=== PATIENT | female | born 1955 | race Caucasian/White ===

== ENCOUNTER 2022-09-01 09:15 | Inpatient (IN) | payer MEDICARE, OTHER, SELFPAY ==
[2022-09-01] VITALS (13 sets, daily range): BP systolic 107–178; BP diastolic 57–81; PULSE 54–69; RESP 16–19; TEMP 36.4–36.9; O2SAT 98–100; BMI 25.0
[2022-09-01] MEDS: ONDANSETRON 4 MG/2 ML INJ IV (09:40)
[2022-09-01] MEDS: MORPHINE 4 MG/ML INJ IV (09:40)
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
--- NOTE | 2022-09-01 09:53 | DI.RAD.S_ITS ---
PROCEDURE: XR HIP W PEL IF DONE RT 2V INDICATIONS: fall pain TECHNIQUE: AP pelvis with lateral view(s) of the right hip(s). COMPARISON: None. FINDINGS: Bones: No fractures or dislocations. Pelvic ring appears intact. No suspicious bony lesions. Soft tissues: The visualized bowel gas pattern is normal. No suspicious soft tissue calcifications. IMPRESSION: No visualized acute fracture or dislocation. However, if clinical concern and/or pain persist, short interval imaging followup in 7-10 days is recommended, as occult injury cannot be definitively excluded. Dictated by: Pema Casillas M.D. on 09/01/2022 at 10:27 Approved by: Pema Casillas M.D. on 09/01/2022 at 10:27
--- NOTE | 2022-09-01 09:53 | DI.RAD.S_ITS ---
PROCEDURE: XR CHEST 1V INDICATIONS: fall pain TECHNIQUE: One view of the chest was acquired. COMPARISON: None. FINDINGS: Surgical changes and devices: None. Lungs and pleura: Lungs are clear. No pleural effusions or pneumothorax. Mediastinum: Mediastinal contours appear normal. Heart size is mildly prominent. Bones and chest wall: No suspicious bony lesions. Overlying soft tissues appear unremarkable. IMPRESSION: No acute pulmonary process. Dictated by: Pema Casillas M.D. on 09/01/2022 at 10:27 Approved by: Pema Casillas M.D. on 09/01/2022 at 10:27
--- NOTE | 2022-09-01 09:58 | DI.RAD.S_ITS ---
PROCEDURE: XR KNEE RT 1TO2V INDICATIONS: pain fall TECHNIQUE: 2 views of the knee were acquired. COMPARISON: None. FINDINGS: Bones: No fractures or dislocations. No suspicious bony lesions. Soft tissues: No joint effusion. No suspicious soft tissue calcifications. IMPRESSION: No visualized acute fracture or dislocation. However, if clinical concern and/or pain persist, short interval imaging followup in 7-10 days is recommended, as occult injury cannot be definitively excluded. Dictated by: Pema Casillas M.D. on 09/01/2022 at 10:25 Approved by: Pema Casillas M.D. on 09/01/2022 at 10:25
[2022-09-01 10:06] LABS: Add Manual Diff / Slide Review NO; Basophils Absolute Auto 0 /uL (0-100); Basophils Percent Auto 0.5 % (0-2); Eosinophils Absolute Auto 100 /uL (0-450); Eosinophils Percent Auto 1.5 % (2-4); Hematocrit 39.2 % (36-46); Hemoglobin 13.1 g/dL (12.0-16.0); Lymphocytes Absolute Auto 2600 /uL (1100-4500); Lymphocytes Percent Auto 30.4 % (25-40); Mean Corpuscular HGB Conc 33.4 % (30-36); Mean Corpuscular Hemoglobin 30.8 PG (26-34); Mean Corpuscular Volume 92.2 fL (80-100); Monocytes Absolute Auto 700 /uL (0-900); Monocytes Percent Auto 8.2 % (3-14); Neutrophils Absolute Auto 5100 /uL (1500-7000); Neutrophils Percent Auto 59.4 % (50-75); Platelet Count 385 X10^3/uL (150-400); Red Blood Cell Count 4.25 X10^6/uL (4.0-5.2); Red Cell Distribution Width 13.6 % (11.6-14.8); White Blood Cell Count 8.6 X10^3/uL (4.5-11.0)
[2022-09-01 10:19] LABS: Alanine Aminotransferase 17 IU/L (<35); Albumin 4.3 g/dL (3.5-5.0); Albumin Globulin Ratio 1.2 (1.0-2.8); Alkaline Phosphatase 90 U/L (38-126); Aspartate Aminotransferase 25 IU/L (14-36); BUN Creatinine Ratio 22.2 (6-22); Bilirubin Total 1.3 mg/dL (0.2-1.3); Blood Urea Nitrogen 14 mg/dL (7-17); Carbon Dioxide 25 mmol/L (22-32); Chloride 102 mmol/L (98-107); Estimated Glomerular Filt Rate > 60 mL/min (>60); Globulin 3.5 g/dL (1.7-4.1); Glucose 98 mg/dL (80-110); HEMOLYSIS 38 (0-50); Potassium 3.5 mmol/L (3.4-5.1); Sodium 138 mmol/L (137-145); Total Protein 7.8 g/dL (6.3-8.2)
--- NOTE | 2022-09-01 10:32 | DI.CT.S_ITS ---
PROCEDURE: CT PEL WO CON INDICATIONS: Right hip pain post fall TECHNIQUE: Noncontrast 3 mm axial sections acquired through the bony pelvis, with coronal and sagittal reformatting. COMPARISON: [facility], CR, XR HIP W PEL IF DONE RT 2V, 09/01/2022, 9:58. FINDINGS: Image quality: Excellent. Bones: There is a nondisplaced subcapital femoral fracture. There is no dislocation. Soft tissues: Visualized intestines demonstrate no obstruction. Scattered diverticula are present. IMPRESSION: Nondisplaced subcapital femoral fracture. Dictated by: Pema Casillas M.D. on 09/01/2022 at 12:14 Approved by: Pema Casillas M.D. on 09/01/2022 at 12:16
[2022-09-01] MEDS: HYDROMORPHONE 1 MG INJ IV ×5 (11:02→21:51)
[2022-09-01 12:16] LABS: COVID19 -Nasal RAPID Negative (Negative)
--- NOTE | 2022-09-01 13:45 | PC.NURSE ---
Day shift: Pt in room from ED at approx 1340. She is A&Ox4. Calm and cooperative with care. Oriented to room and call light. Agrees to not get OOB w/o help from staff. Rt leg/hip pain present. VS WNL. RA 97%. Bed alarm is on.
[2022-09-01] MEDS: SODIUM CHLORIDE 0.9% 1,000 ML 100 ML IV (14:02)
[2022-09-01 14:35] LABS: INR 1.1 (0.9-1.3); Prothrombin Time 12.6 SECONDS (10.1-12.7)
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
[2022-09-02] VITALS: BP 94/49; PULSE 71; RESP 19; TEMP 37.2; O2SAT 93
[2022-09-02] MEDS: HYDROMORPHONE 1 MG INJ IV ×3 (03:59→12:07)
[2022-09-02 05:11] LABS: Add Manual Diff / Slide Review NO; Basophils Absolute Auto 0 /uL (0-100); Basophils Percent Auto 0.5 % (0-2); Eosinophils Absolute Auto 100 /uL (0-450); Eosinophils Percent Auto 0.9 % (2-4); Hematocrit 33.1 % (36-46); Hemoglobin 11.3 g/dL (12.0-16.0); Lymphocytes Absolute Auto 1100 /uL (1100-4500); Lymphocytes Percent Auto 11.8 % (25-40); Mean Corpuscular HGB Conc 34.1 % (30-36); Mean Corpuscular Hemoglobin 31.4 PG (26-34); Mean Corpuscular Volume 92.1 fL (80-100); Monocytes Absolute Auto 800 /uL (0-900); Monocytes Percent Auto 7.9 % (3-14); Neutrophils Absolute Auto 7700 /uL (1500-7000); Neutrophils Percent Auto 78.9 % (50-75); Platelet Count 270 X10^3/uL (150-400); Red Blood Cell Count 3.59 X10^6/uL (4.0-5.2); Red Cell Distribution Width 13.3 % (11.6-14.8); White Blood Cell Count 9.7 X10^3/uL (4.5-11.0)
[2022-09-02 05:14] LABS: BUN Creatinine Ratio 22.9 (6-22); Blood Urea Nitrogen 16 mg/dL (7-17); Calcium 7.6 mg/dL (8.4-10.2); Carbon Dioxide 25 mmol/L (22-32); Chloride 102 mmol/L (98-107); Estimated Glomerular Filt Rate > 60 mL/min (>60); Glucose 102 mg/dL (80-110); HEMOLYSIS < 15 (0-50); Potassium 3.6 mmol/L (3.4-5.1); Sodium 134 mmol/L (137-145)
[2022-09-02 06:00] VITALS: BP 95/48; PULSE 72; RESP 19; TEMP 37.3; O2SAT 94
--- NOTE | 2022-09-02 09:23 | CM.DANOTE ---
Addendum entered by MARY LOU East 09/02/22 12:35: ADD: Per Ortho PA, recommendation is likely surgery but Ortho MD to perform hip surg is not available until 09/05/22 and therefore pt to remain in the hospital for pain control and support until surgery can be completed. BF Original Note: Patient is a 66 yo female who was admitted on 09/01/22 for GLF. Pt has MCR and LIFE and her PCP is not listed. EMR was reviewed. Per MD, pt with a hx of seizures, fibromyalgia and admitted after GLF with femoral neck fx and awaiting Ortho Consult for possible surgery. SW met bedside with pt and spouse and explained role and they confirm that they live in [place] at home with their adult Dtr and two older grandkids. 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 Pt also has a service dog for balance issues/seizures. Pt clearly having some pain management issues and in discomfort and preference is for Ortho Consult for likely need of surgical intervention. Pt's mother is also driving from [place] today to be available for assist as needed. Pt denies any hx of HH or SNF. SW discussed possible options of HH services and SNF rehab pending pt's progress with PT/OT when more medically appropriate and pt and spouse preference is home with HH and family assist if pain better managed. Plan: SW to follow closely for Ortho Consult towards determining possible need for surgery and then PT/OT eval and recommendations to determine HH vs SNF. MARY LOU East Discharge Planning/Care Management CM Discharge Assessment Start: 09/02/22 09:19 Freq: Status: Active Protocol: Document 09/02/22 09:19 BF (Rec: 09/02/22 09:23 [id number]) Discharge Planning Assessment Assigned Aquarium Tank Attendant MARY LOU Foss DPOA/Assigned Designee Name spouse Nicola Contact Information [phone] Advance Directives? No Advance Directives on File No History Provided By Patient,Significant Other, Medical Record Has Patient been admitted in last 30 No days? Prior Living Arrangements House Household Members spouse,family Comment Lives with spouse, adult dtr and grandkids Type of transporation used prior to Drives own vehicle admit Independent with ADL's Yes Is patient alert and oriented? Yes Needs Assistance With Home Chores / Shopping Caregiver for Another No: older grandkids in the home Comment Pt has a service dog for balance issues/seizures DME Already Rented / Owned Cane Patient/Family Preference Long-Term Facility,Home with Home Health Comment SNF vs HH pending likely Ortho surg and PT/OT eval post surg Barriers to Discharge No Discharge Plan Home with Home Health Transportation Arrangement Spouse is bedside and plans to provide transport if safe for home Additional Comment Pending possible surgery and PT/OT eval Whiteboard Updated in Patient Room with Yes name and ext. # of Aquarium Tank Attendant Review Status In Process Please Provide Date Initial DC 09/02/22 Assessment Was Performed Next Review Type Continued Stay Review
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
[2022-09-02 10:32] VITALS: BP 98/52; PULSE 67; RESP 16; TEMP 37.7
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
[2022-09-02 12:24] VITALS: BP 95/55; PULSE 64; RESP 16; TEMP 37.1; O2SAT 95
[2022-09-02 16:45] VITALS: BP 102/55; PULSE 62; RESP 16; TEMP 37.2; O2SAT 96
[2022-09-02] MEDS: HYDROMORPHONE 0.5 MG INJ IV ×2 (18:50→21:14)
[2022-09-02] MEDS: SODIUM CHLORIDE 0.9% FLUSH 10 ML IV ×2 (18:50→21:14)
[2022-09-02] MEDS: HEPARIN 5,000 UNIT/ML VIAL 5000 UNIT SUBCUT (21:13)
[2022-09-03] MEDS: HYDROMORPHONE 0.5 MG INJ IV ×4 (00:52→18:29)
[2022-09-03] MEDS: SODIUM CHLORIDE 0.9% FLUSH 10 ML IV ×7 (00:52→21:20)
[2022-09-03 00:56] VITALS: BP 113/63; PULSE 63; RESP 18; TEMP 36.5; O2SAT 95
[2022-09-03] MEDS: HYDROMORPHONE 1 MG INJ IV ×3 (02:22→21:17)
[2022-09-03] MEDS: ONDANSETRON 4 MG/2 ML INJ IV (02:26)
[2022-09-03 04:44] LABS: Add Manual Diff / Slide Review NO; Basophils Absolute Auto 0 /uL (0-100); Basophils Percent Auto 0.3 % (0-2); Eosinophils Absolute Auto 100 /uL (0-450); Eosinophils Percent Auto 1.3 % (2-4); Hematocrit 30.8 % (36-46); Hemoglobin 10.6 g/dL (12.0-16.0); Lymphocytes Absolute Auto 1200 /uL (1100-4500); Lymphocytes Percent Auto 13.2 % (25-40); Mean Corpuscular HGB Conc 34.5 % (30-36); Mean Corpuscular Hemoglobin 31.6 PG (26-34); Mean Corpuscular Volume 91.6 fL (80-100); Monocytes Absolute Auto 800 /uL (0-900); Monocytes Percent Auto 8.5 % (3-14); Neutrophils Absolute Auto 7100 /uL (1500-7000); Neutrophils Percent Auto 76.7 % (50-75); Platelet Count 233 X10^3/uL (150-400); Red Blood Cell Count 3.36 X10^6/uL (4.0-5.2); Red Cell Distribution Width 13.1 % (11.6-14.8); White Blood Cell Count 9.2 X10^3/uL (4.5-11.0)
[2022-09-03 04:46] LABS: Blood Urea Nitrogen 11 mg/dL (7-17); Calcium 7.9 mg/dL (8.4-10.2); Carbon Dioxide 25 mmol/L (22-32); Chloride 99 mmol/L (98-107); Estimated Glomerular Filt Rate > 60 mL/min (>60); Glucose 103 mg/dL (80-110); HEMOLYSIS < 15 (0-50); Potassium 3.6 mmol/L (3.4-5.1); Sodium 132 mmol/L (137-145)
[2022-09-03 05:38] VITALS: BP 98/53; PULSE 63; RESP 17; TEMP 36.8; O2SAT 95
[2022-09-03] MEDS: HEPARIN 5,000 UNIT/ML VIAL 5000 UNIT SUBCUT ×2 (08:22→21:19)
[2022-09-03] MEDS: polyethylene glycoL 3350 17 GM POWD.PACK PO (08:51)
[2022-09-03 12:00] VITALS: BP 114/65; PULSE 59; RESP 20; TEMP 36.7; O2SAT 97
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
--- NOTE | 2022-09-03 17:27 | PC.NURSE ---
Day shift: Pt c/o left upper rib pain today at approx 1720. This speech writer stated that it was likely gas/bowell pain from the prolonged bed rest. Dr Holden has been made aware.
[2022-09-03 18:00] VITALS: BP 127/74; PULSE 68; RESP 18; TEMP 37.6; O2SAT 96
[2022-09-03] MEDS: SENNOSIDES 8.6 MG TABLET 17.2 MG PO (21:18)
[2022-09-04] VITALS: BP 112/68; PULSE 64; RESP 16; TEMP 36.8; O2SAT 98
[2022-09-04] MEDS: HYDROMORPHONE 1 MG INJ IV ×4 (00:31→15:32)
[2022-09-04] MEDS: SODIUM CHLORIDE 0.9% FLUSH 10 ML IV ×5 (00:33→21:16)
[2022-09-04 05:00] LABS: Add Manual Diff / Slide Review NO; Basophils Absolute Auto 0 /uL (0-100); Basophils Percent Auto 0.3 % (0-2); Eosinophils Absolute Auto 200 /uL (0-450); Eosinophils Percent Auto 2.3 % (2-4); Hematocrit 32.8 % (36-46); Hemoglobin 11.2 g/dL (12.0-16.0); Lymphocytes Absolute Auto 1200 /uL (1100-4500); Lymphocytes Percent Auto 17.6 % (25-40); Mean Corpuscular Hemoglobin 31.1 PG (26-34); Mean Corpuscular Volume 91.5 fL (80-100); Monocytes Absolute Auto 700 /uL (0-900); Monocytes Percent Auto 10.3 % (3-14); Neutrophils Absolute Auto 4900 /uL (1500-7000); Neutrophils Percent Auto 69.5 % (50-75); Platelet Count 259 X10^3/uL (150-400); Red Blood Cell Count 3.58 X10^6/uL (4.0-5.2); Red Cell Distribution Width 12.9 % (11.6-14.8)
[2022-09-04 05:13] LABS: BUN Creatinine Ratio 15.8 (6-22); Blood Urea Nitrogen 9 mg/dL (7-17); Calcium 8.1 mg/dL (8.4-10.2); Carbon Dioxide 29 mmol/L (22-32); Chloride 95 mmol/L (98-107); Estimated Glomerular Filt Rate > 60 mL/min (>60); Glucose 108 mg/dL (80-110); HEMOLYSIS < 15 (0-50); Potassium 3.9 mmol/L (3.4-5.1); Sodium 134 mmol/L (137-145)
[2022-09-04 06:00] VITALS: BP 105/65; PULSE 66; RESP 16; TEMP 37; O2SAT 99
[2022-09-04 08:07] VITALS: BP 99/59; PULSE 58; RESP 20; TEMP 37.2; O2SAT 94
[2022-09-04] MEDS: polyethylene glycoL 3350 17 GM POWD.PACK PO (09:11)
[2022-09-04] MEDS: HEPARIN 5,000 UNIT/ML VIAL 5000 UNIT SUBCUT ×2 (09:11→21:16)
[2022-09-04] MEDS: HYDROMORPHONE 0.5 MG INJ IV ×3 (10:53→21:16)
[2022-09-04 12:00] VITALS: BP 98/59; PULSE 59; RESP 22; TEMP 37.1; O2SAT 94
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
[2022-09-04] MEDS: diphenhydrAMINE 25 MG TABLET PO (21:15)
[2022-09-04] MEDS: SENNOSIDES 8.6 MG TABLET 17.2 MG PO (21:15)
[2022-09-05] VITALS (16 sets, daily range): BP systolic 97–137; BP diastolic 47–77; PULSE 57–69; RESP 10–22; TEMP 36.2–37.4; O2SAT 95–100; BMI 25.0
[2022-09-05] MEDS: HYDROMORPHONE 0.5 MG INJ IV ×2 (01:52→16:50)
[2022-09-05] MEDS: SODIUM CHLORIDE 0.9% FLUSH 10 ML IV (01:53)
--- NOTE | 2022-09-05 07:26 | DI.RAD.S_ITS ---
PROCEDURE: XR PELVIS 1-2V INDICATIONS: right total hip arthroplasty. interoperat TECHNIQUE: 1 view of the lower pelvis acquired. COMPARISON: None. FINDINGS: Bones: Patient is status post right hip arthroplasty, with hardware components in expected positions. The hip joint appears congruent. The visualized bony structures appear intact. Soft tissues: Overlying postoperative changes are noted. No suspicious soft tissue densities. IMPRESSION: Intraoperative radiograph of pelvis shows right total hip arthroplasty in progress. Dictated by: Monty Espinosa M.D. on 09/05/2022 at 14:51 Approved by: Monty Espinosa M.D. on 09/05/2022 at 14:51
[2022-09-05] MEDS: HYDROMORPHONE 1 MG INJ IV (08:27)
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
[2022-09-05] MEDS: VANCOMYCIN 1,000 MG/200 ML PIGGYBACK 200 MG IV (09:41)
--- NOTE | 2022-09-05 10:13 | PC.NURSE ---
Addendum entered by Sofia Green R.N. 09/05/22 16:31: Pt back to room from OR at 1404 Original Note: 0950 Patient to OR via bed for surgery with chart.
--- NOTE | 2022-09-05 10:16 | PM.PREOP ---
Pre-operative Note COVID-19 COVID-19 status: Negative Interval Note History & Physical reviewed/Exam performed by Physician: Yes Changes to H&P: No H&P completed within 30 days and has changed as indicated here:: She fell when her service dog got tangled up with a rongeur Shirley and landed on her right hip. She notes ongoing substantial right hip pain. She is a good community ambulator. 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 She does have a history of a familial neurological issue with myoclonic seizures. She does not lose consciousness with her seizures. She did not have prior right hip pain. She normally is physically active. She notes substantial right hip pain. She is brought to the operating room for a right total hip arthroplasty. The procedure alternatives risks benefits and complications were discussed in detail. We discussed posterior hip precautions and also fall precautions. Risks benefits options possible complications were discussed in detail. Including but not limited to bleeding, infection, intraoperative fracture, leg length discrepancy, instability postoperatively, and anticipated longevity of the prosthesis. We also discussed possibility of anesthetic complications. She understands and agrees and consents to right total hip arthroplasty.
--- NOTE | 2022-09-05 10:21 | P.OP_ITS ---
Operative Date/Time/Diagnoses Date of procedure: 09/05/22 Time of procedure: 11:00 Pre-op diagnosis: Right femoral neck fracture Post-op diagnosis: same Procedure & Clinicians Procedure: Right total hip arthroplasty posterior approach Same procedure as scheduled: Yes Indications: The patient has had a fall with an acute right femoral neck fracture. We discussed the options in detail and after extensive discussion I have recommended And the patient has requested total hip replacement. The risks, benefits and alternatives to surgery were discussed with the patient prior to proceeding. Risks discussed included, but were not limited to, failure to relieve pain, leg length discrepancy, dislocation, stiffness, infection, nerve damage, deep venous thrombosis, pulmonary embolism, stroke, coma, heart attack, permanent paralysis and , as well as the potential need for eventual revision of the prosthetic. Surgeon: Anya Rivero Medical Technologist Chief: Carina Gardner Anesthesia Type: Spinal Operative Notes Findings: Right femoral neck fracture, adequate bone and adequate stability Closure Type: primary Specimen(s): none sent Prosthetic devices, grafts, tissues, transplants, or devices: Rivero and nephew anthology size 6 standard offset, 48 mm cup, neutral poly liner, 32 by +4 Oxinium femoral head, two 6.5 mm screws Estimated Blood Loss (mL): 250 Blood products transfused: none Procedure in detail: The patient was seen in the pre-operative area, where the patient identified the right hip as the operative site and this was marked with my initials. The patient received pre-operative antibiotics and was taken to the operating room and placed on the operative table in the left lateral decubitus position after satisfactory anesthesia. A rotary filter operator out was performed. The right leg was prepared from the ankle to the iliac crest with ChloroPrep in the usual fashion and draped through sterile drapes. The hip was approached through an approximately 20 cm incision centered over the greater trochanter and curving gently posteriorly as it went proximally. This was carried sharply to the fascia jayson, which was divided and retracted with a self retaining retractor. The trochanteric bursa was excised with care being taken to avoid the sciatic nerve, which was identified and protected throughout the case. The short external rotators were incised and the capsulomuscular flap was raised and tagged for later repair. The hip was dislocated, and a femoral neck osteotomy performed approximately 15 mm above the lesser trochanter. The fracture was more cephalad than the osteotomy. Retractors were placed around the femur. The canal was opened with a box cutting osteotome, followed by a T handled reamer and a lateralizing reamer. The chili pepper broach was then used, followed by sequential broaching until there was good stability of the broach in the femur. Retractors were placed to expose the acetabulum. The labrum and central soft tissues were removed. Reaming was performed initially going up in 2 mm increments, then 1 mm increments until good bite was obtained with an odd sized reamer. The cup 1 mm larger than the last reamer was then inserted using the appropriate anteversion guides. Her bone was fairly soft and I stabilized the cup with a single screw. A trial neutral liner was placed. The broach was placed in the canal. A trial head and neck were then placed and the hip relocated and checked for leg length and stability. An intraoperative film confirmed the component position and no evidence of fracture. I meticulously checked her range of motion. It did appear that there was some posterior impingement and in 1 specific position I noted some anterior instability. She had a fairly mobile hip at baseline. I was worried about posterior impingement of the neck on the cup and I thought I should repositioned the cup. Screw was removed after the hip was dislocated. The cup was removed and repositioned removing approximately 10? of anteversion. It was then st abilized with 2 screws. Neutral poly liner was placed. Repeat trial reduction with the broach and a 0 head showed good range of motion and stability. The patient was stable in the position of sleep, of squatting, and could be put through a range of motion with 45 degrees internal rotation without dislocation. At 90 degrees flexion, internal rotation to 70? was possible before dislocation. This was felt to be satisfactory and the appropriate components were opened, and the trials were removed. The acetabular liner was impacted into position. The final stem was then impacted into the prepared femoral canal. A brief Betadine soak was performed while trialing with head options. The hip was meticulously irrigated with normal saline. Finally the femoral head was impacted onto the stem. The acetabulum was cleared of all material and the hip relocated one final time. The capsulomuscular flap was then repaired to the greater trochanter though an awl hole using the tag sutures. The short external rotators were repaired with a nonabsorbable suture. A deep drain was placed and brought out anteriorly. The fascia jayson was closed with Vicryl. The subcutaneous layer was closed with barbed sutures and surgical glue. An Aquacel Ag dressing was applied and the patient was taken to recovery having tolerated the procedure well. Complications: none Post-operative Condition: stable Disposition: Acute Care Plan for aftercare: The patient will be maintained on a standard total hip replacement protocol with weight bearing as tolerated and posterior hip precautions. The patient will receive Aspirin and sequential compression devices for DVT prophylaxis. The patient will be discharged home when safe for the home environment.
[2022-09-05] MEDS: ACETAMINOPHEN 325 MG TABLET 975 MG PO (10:28)
[2022-09-05] MEDS: CELECOXIB 200 MG CAPSULE PO (10:28)
[2022-09-05] MEDS: CEFAZOLIN 2 GM/100 ML PREMIX 100 ML IV ×2 (11:05→18:10)
[2022-09-05] MEDS: TRANEXAMIC ACID 1,000 MG VIAL 2000 MG INJ ×2 (11:10→12:50)
[2022-09-05] MEDS: LACTATED RINGERS 1,000 ML 84 ML IV (11:34)
[2022-09-05] MEDS: BUPIVACAINE 0.5% W/ EPI (PF) 30 ML VIAL INJ (11:37)
[2022-09-05] MEDS: BUPIVACAINE LIPOSOME 266 MG/20 ML VIAL INJ (11:38)
--- NOTE | 2022-09-05 11:45 | SUR.OPER ---
Lateral on padded OR bed. Gel axillary roll. Arms secured on padded armboard with pillow supporting top arm. Padded hip positioner braces x4 - anterior and posterior chest and pelvis. Additional gel pad used anterior pelvis. Gel pad under bottom leg from knee to foot and secured with tape over sheet.
--- NOTE | 2022-09-05 13:02 | DI.RAD.S_ITS ---
PROCEDURE: XR HIP W PEL IF DONE RT 2V INDICATIONS: POST OP TOTAL RIGHT HIP REPLACEMENT TECHNIQUE: AP pelvis and lateral view of the right hip acquired. COMPARISON: [facility], [place], XR HIP W PEL IF DONE RT 2V, 09/01/2022, 9:58. FINDINGS: Bones: Patient is status post right hip arthroplasty, with hardware components in expected positions. The hip joint appears congruent. The visualized bony structures appear intact. Soft tissues: Overlying postoperative changes are noted. No suspicious soft tissue densities. IMPRESSION: Expected postsurgical change for right hip arthroplasty. Dictated by: Enma Herrera MD, PhD on 09/05/2022 at 13:52 Approved by: Enma Herrera MD, PhD on 09/05/2022 at 13:53
[2022-09-05] MEDS: LACTATED RINGERS 1,000 ML 125 ML IV ×2 (14:35→23:25)
--- NOTE | 2022-09-05 15:09 | CM.DPNOTE ---
Addendum entered by Millicent Romero R.N. 09/05/22 15:43: This DCP called and spoke with Estela at [facility]. Let her know that referral paperwork has been faxed. Also let her know of pt having new provider and that this DCP has a call out to her with a request to follow pt once on HH, this will determine whether this pt will need the [place] program. DCP will follow closely. Original Note: DCP Cont: Met with pt who had her surgery this am. Spouse and mother at bedside. Discussed options for care support upon discharge from hospital. Pt is agreeable to hh. Reviewed HH options with pt via Ipad at Medicare.gov website. Pt does not want to go to SNF, but is open to home health PT/OT only. Pt states that she has plenty of family support at home. Pt has chosen [facility]. Pt was given a brochure. Will be faxing [facility] the referral with f/u phone call. Pt reports that Dr. Raza was her PCP, although is no longer due to Dr. Raza retiring. She has been appointed another PCP there at [facility], MELODIE Bowie, clyde Serna the dental office receptionist. She will reach out to [facility] to assure that they will follow pt at home with HH once medically stable. Pt is agreeable. P: Will fax Referral to [facility] and f/u with phone call. Face to Face completed. Millicent Romero telemarketing fundraiser
[2022-09-05] MEDS: polyethylene glycoL 3350 17 GM POWD.PACK PO (15:40)
[2022-09-05] MEDS: SENNOSIDES 8.6 MG TABLET PO (15:41)
[2022-09-05] MEDS: BISACODYL 5 MG TABLET 10 MG PO (15:41)
[2022-09-05] MEDS: OXYCODONE IR 5 MG TABLET PO (16:10)
[2022-09-05] MEDS: ACETAMINOPHEN 325 MG TABLET 650 MG PO ×2 (18:00→23:27)
[2022-09-05] MEDS: IBUPROFEN 400 MG TABLET PO (18:00)
[2022-09-05] MEDS: HYDROMORPHONE 2 MG TABLET PO (18:28)
[2022-09-05] MEDS: ONDANSETRON 4 MG/2 ML INJ IV (20:00)
[2022-09-05] MEDS: HYDROMORPHONE 0.5 MG INJ 2 MG IV (21:15)
[2022-09-05] MEDS: DOCUSATE 100 MG CAPSULE PO (21:18)
[2022-09-05] MEDS: ASPIRIN EC 81 MG TABLET PO (21:18)
--- NOTE | 2022-09-05 22:00 | PC.NURSE ---
Addendum entered by Patricia Davila R.N. 09/06/22 06:41: Up to BSC with walker and 2 assist out of bed and 1 assist back into bed. Unable to have BM so removed small amount pebble like stool manually from rectum with small amount of bleeding. Administered dulcolax tabs. Original Note: Patient is alert and oriented. Breath sounds CTA with RA sat of 95%. HRR. Complained of earlier nausea which resolved with Zofran. BT present and abdomen is soft; passing some flatus. Indwelling catheter is patent; urine is clear, pale, yellow. Had some urinary incontinence so catheter balloon deflated, catheter advanced into bladder and balloon reinflated and now is no longer leaking. Is able to move self with assistance; adhering to posterior hip precautions. Aquacel dressing is CDI. Wearing bilateral calf SCD's. Has been having pain control issues so discussed with Fred SEWELL, who put in new pain med orders. Medicated with 2mg IV Dilaudid for 10/10 pain and is now much more comfortable at 5/10. CMS is intact bilaterally. Noted bilateral UE tremors. Fall risk score is high and bed alarm is activated.
[2022-09-05] MEDS: IBUPROFEN 400 MG TABLET 600 MG PO (23:27)
[2022-09-06 01:17] VITALS: BP 94/51; PULSE 71; RESP 19; TEMP 36.5; O2SAT 96
[2022-09-06] MEDS: CEFAZOLIN 2 GM/100 ML PREMIX 100 ML IV (03:32)
[2022-09-06] MEDS: HYDROMORPHONE 2 MG TABLET PO ×3 (03:37→13:49)
[2022-09-06 05:00] VITALS: BP 98/59; PULSE 64; RESP 18; TEMP 35.9; O2SAT 95
[2022-09-06] MEDS: IBUPROFEN 400 MG TABLET 600 MG PO ×2 (05:47→12:20)
[2022-09-06] MEDS: ACETAMINOPHEN 325 MG TABLET 650 MG PO ×2 (05:47→12:18)
[2022-09-06 06:05] LABS: Hemoglobin 9.3 g/dL (12.0-16.0)
[2022-09-06] MEDS: BISACODYL 5 MG TABLET 10 MG PO (06:31)
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
[2022-09-06 08:00] VITALS: BP 99/65; PULSE 69; RESP 18; TEMP 37.2; O2SAT 96
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
[2022-09-06] MEDS: ASPIRIN EC 81 MG TABLET PO (09:42)
[2022-09-06] MEDS: polyethylene glycoL 3350 17 GM POWD.PACK PO (09:42)
[2022-09-06] MEDS: DOCUSATE 100 MG CAPSULE PO (09:42)
[2022-09-06] MEDS: SENNOSIDES 8.6 MG TABLET PO (09:42)
[2022-09-06] MEDS: SODIUM CHLORIDE 0.9% FLUSH 10 ML IV (09:43)
--- NOTE | 2022-09-06 10:33 | CM.DPNOTE ---
DCP: This CM confirmed with Kareem at [facility]'s this am that per STEPHAN Domingo notes there at [facility], MELODIE Traore will follow pt while she receives care services from [facility]. This CM called and spoke with Estela at [facility] and made her aware that MELODIE Traore will follow pt.
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
--- NOTE | 2022-09-06 13:55 | PC.NURSE ---
Pt is dressed and ready for discharge home with Spouse. H/H PT has been set up. IV has been removed. Went over d/c instructions with Pt and family-discussed d/c meds, time of last dose, reviewed stroke education, discussed following posterior hip precautions, no driving while taking narcotics, drink plenty of fluids to prevent constipation or dehydration, s/s of infection and when to call MD and follow up - which has already been scheduled. Pt and family denied further questions and was taken out via w/c by QUAL[employer] ASSURANCE MONITOR to POV with family and all belongings.
== END 2022-09-06 14:00 | disposition home health service (06) | DRG 522 ==
LOC: ED 12:40 → AC 13:45
PROVIDERS: Neuromusculoskeletal Medicine, Sports Medicine; Orthopaedic Surgery; Admitting Provider Family Medicine; Emergency Provider Emergency Medicine; Referring Provider Emergency Medicine; Visit Provider Family Medicine
PROC: 0SR90JZ Replacement of Right Hip Joint with Synthetic Substitute, Open Approach (ICD-10-PCS; CPT 27130; principal; 2022-09-05 14:15)
DX: S72.011A Unspecified intracapsular fracture of right femur, initial encounter for closed fracture (principal); E87.1 Hypo-osmolality and hyponatremia; M48.02 Spinal stenosis, cervical region; M54.12 Radiculopathy, cervical region; K59.00 Constipation, unspecified; M79.7 Fibromyalgia; W18.30XA Fall on same level, unspecified, initial encounter; Z20.822 Contact with and (suspected) exposure to COVID-19
CPT/HCPCS: 36415; 71045; 72170; 72192; 73502; 73562; 80048; 80053; 85014; 85018; 85025; 85610; 87635; 96374; 96375; 96376; 97116; 97162; 97530; 99285; C1776; C9803; C9290; J0690; J1170; J1644; J2250; J2270; J2405; J2704; J3010

== ENCOUNTER → 2023-04-02 13:42 | Outpatient (CLI) | payer MEDICARE, OTHER, SELFPAY ==
[2022-09-01 14:04] VITALS: BMI 25.0
--- NOTE | 2023-04-02 | DI.ECHO.S_ITS ---
[facility] +---------+ : : [address] [place] : : : : [id number] : : : : Phone: [phone]+ Echocardiogram Report + + :Name: NERY CHANCE Study Date: 04/02/2023 Height: 67 in : :[facility] ReadingLocation: Weight: 150 lb : : Gender: Female BSA: 1.8 m2 : :: 1955 Age: 67 yrs BP: 133/85 mmHg: :Reason For Study: CARDIAC MURMUR : :Ordering Physician: JOSEP, : :DIPTI Performed By: Colette Buchanan : :Referring: DIPTI CAR : + + Interpretation Summary Normal left ventricle size with ejection fraction 55-60%. Mild mitral regurgitation. Mild tricuspid regurgitation. Procedure: A two-dimensional transthoracic echocardiogram with color flow and Doppler was performed. The study quality was technically adequate. There is no prior echocardiogram noted for this patient. The patient was in sinus rhythm with heart rates between 54-72 bpm during the exam. Left Ventricle: The left ventricle is normal in size and wall thickness. The ejection fraction is estimated to be 55-60%. There are no focal wall motion abnormalities. Diastolic parameters suggest probable normal left ventricular diastolic function and normal filling pressures. Right Ventricle: The right ventricle is normal in size and function. Atria: The left atrial size is normal. Right atrial size is normal. There is no Doppler evidence for an interatrial shunt. Mitral Valve: The mitral valve is normal in structure and function. There is mild mitral regurgitation. Aortic Valve: The aortic valve is trileaflet. The aortic valve opens well. There is no aortic valve stenosis. No aortic regurgitation is present. Tricuspid Valve: The tricuspid valve is normal in structure and function. There is mild tricuspid regurgitation. The right ventricular systolic pressure is estimated to be at least 22 mmHg based on an estimated right atrial pressure of 3 mm Hg. Pulmonic Valve: The pulmonic valve leaflets are thin and pliable; valve motion is normal. There is trace pulmonic regurgitation. Great Vessels: The aortic root is normal size. The dimensions of the ascending aorta are normal. The IVC is of normal diameter and collapses greater than 50% with a sniff. This suggests a low right atrial pressure of 3 mm Hg. Pericardium/ Pleura There is no pericardial effusion. There is no pleural effusion. MMode/2D Measurements & Calculations LVIDd: 3.7 cm LVOT diam: 2.0 cm LVIDs: 2.7 cm Ao root diam: 3.1 cm FS: 25.1 % asc Aorta Diam: 2.9 cm EPSS: 0.50 cm Ao Arch Diam (Prox Trans): 2.8 cm IVSd: 0.63 cm LVPWd: 0.71 cm LV hall. diameter/BSA (cm/m^2): 2.0 LV sys. diameter/BSA (cm/m^2): 1.5 LA A2 area: 19.9 cm2 RA long axis: 4.7 cm LA A4 area: 15.3 cm2 RA area: 15.5 cm2 LA length (vol): 4.7 cm RA vol: 43.0 ml LA vol: 55.6 ml RA : 24.0 ml/m2 LA vol index: 31.1 ml/m2 IVC diam: 1.1 cm RVD1 (basal): 4.4 cm RVD2 (mid): 3.0 cm TAPSE: 2.2 cm Doppler Measurements & Calculations Ao V2 max: 120.9 cm/sec LVOT Max Zak: 112.0 cm/sec Ao V2 mean: 93.4 cm/sec LV V1 max P.0 mmHg Ao max P.8 mmHg LV V1 VTI: 23.1 cm Ao mean P.7 mmHg JAZ(I,D): 2.6 cm2 Ao V2 VTI: 28.1 cm JAZ(V,D): 3.0 cm2 sev ratio: 0.82 JAZ indexed to BSA (cm^2/m^2): 1.5 MV E max zak: 61.9 cm/sec TR max zak: 215.6 cm/sec MV A max zak: 55.5 cm/sec TR max P.6 mmHg MV E/A: 1.1 PA V2 max: 82.0 cm/sec Med Peak E' Zak: 6.5 cm/sec PA V2 mean: 58.6 cm/sec E/E' med: 9.5 PA mean P.5 mmHg Lat Peak E' Zak: 10.0 cm/sec PA pr(Accel): 46.5 mmHg E/E' lat: 6.2 E/e' average: 7.8 MV dec time: 0.27 sec Pulm A Revs Zak: 27.1 cm/sec SV(LVOT): 74.1 ml Pulm A Revs Dur: 0.15 sec Electronically signed by: Henrik Junior on Reading Physician:04/02/2023 04:02 PM
== END ==
PROVIDERS: PCP Nurse Practitioner Family; Referring Provider Nurse Practitioner Family; Visit Provider Nurse Practitioner Family
DX: I08.1 Rheumatic disorders of both mitral and tricuspid valves (principal); R01.1 Cardiac murmur, unspecified
CPT/HCPCS: 93306